=== PATIENT | male | born 1955 | race Caucasian/White ===

== ENCOUNTER 2017-02-08 07:28 | Emergency (ER) | payer OTHER ==
[~2017-02-08] VITALS: Ht 182.9 cm; Wt 99.8 kg
--- NOTE | ~2017-02-08 | CR72 ---
[facility] A Service of [facility] RADIOLOGY TEXT RESULTS PATIENT: MAURO ULRICH LOCATION: [facility] : 51 UNIT #: [id number] AGE: [address]: Loida Rodriguez APRN SEX: M ORDER DR: [id number] [facility] [address] [place], [place] [address] [id number] MR#: [id number] Acc #: [id number] NAME: MUARO ULRICH : 1955 SEX: M STUDY DATE/TIME: 02/08/2017 8:09 UNIT: [facility] ROOM: STUDY DESCRIPTION: CR Chest Single View Portable Attending Physician: Loida Rodriguez A.P.R.N. Ordering Physician: Ed Steve Trinh M.D. Primary Care Physician: Lalita Obregon Aprn MEDICAL IMAGING REPORT This report is preliminary unless electronic signature is present EXAM Chest x-ray single view portable. HISTORY Dyspnea starting today. COMMENT Single frontal portable view of the chest timed 8:09 02/08/2017 reviewed. No comparison. The cardiac silhouette size is normal. There is patchy bilateral lower lung airspace disease, right greater than left. There is mild vascular congestion suspected. No pleural effusion and no pneumothorax seen. IMPRESSION 1. Patchy bilateral lower lung airspace disease, right greater than left. Mild vascular congestion suspected. Could be a manifestation of mild volume overload with patchy pulmonary edema, but there is no pleural effusion or obvious cardiac silhouette enlargement. Please correlate as well for any clinical concern for aspiration or pneumonia. Follow up recommended. Dictated by... Amada Lynn M.D. THIS IS AN ELECTRONICALLY VERIFIED REPORT Amada Lynn M.D. at 02/09/2017 7:51 AM MIRNA/leny TD: 02/08/2017 16:43 JOB #: [id number] [facility] A Service of [facility] RADIOLOGY TEXT RESULTS PATIENT: MAURO ULRICH LOCATION: [facility] : 51 UNIT #: [id number] AGE: [address]: Loida Rodriguez APRN SEX: M ORDER DR: MEDICAL IMAGING REPORT Page 1 of 1 COPY
--- NOTE | ~2017-02-08 | EKG ---
PATIENT: MAURO ULRICH UNIT #: [id number] Ventricular Rate: 69 BPM Atrial Rate: 69 BPM P-R Interval: 144 ms QRS Duration: 114 ms Q-T Interval: 416 ms QTC Calculation(Bezet): 445 ms P [place]: 59 degrees Calculated R [place]: 87 degrees Calculated T [place]: 31 degrees Diagnosis Line: Normal sinus rhythm Diagnosis Line: RSR' or QR pattern in V1 suggests right Diagnosis Line: ventricular conduction delay Diagnosis Line: Borderline ECG Diagnosis Line: Diagnosis Line: Confirmed by DAVON ANDERSON MD ([id number]) on Diagnosis Line: 02/09/2017 8:20:16 PM INTERPRETING MD: ANTWAN
[2017-02-08 08:24] LABS: BASOPHIL% 0.6 % (0-2.5); EOSINOPHIL# 0.1 X10e3 (0-0.7); EOSINOPHIL% 2.5 % (0.0-7.0); HEMATOCRIT 44.4 % (38.0-50.0); HEMOGLOBIN 14.6 gm/dL (13.0-16.0); LYMPHOCYTE# 1.2 X10e3 (1.0-3.5); LYMPHOCYTE% 19.5 % (17.0-45.0); MEAN CELL VOLUME 87.4 FL (83-96); MEAN CORPUSCULAR HEMOGLOBIN 28.7 PG (28-34); MEAN CORPUSCULAR HGB CONC 32.8 g/dL (30-36); MEAN PLATELET VOLUME 8.1 FL (6.5-11.5); MONOCYTE# 0.6 X10e3 (0-1.0); MONOCYTE% 9.1 % (3.0-12.0); NEUTROPHIL# 4.2 X10e3 (1.5-7.1); NEUTROPHIL% 68.3 % (40-75); PLATELET COUNT 210 X10e3 (140-420); RED BLOOD COUNT 5.08 X10e (3.90-5.60); RED CELL DISTRIBUTION WIDTH 12.6 % (11.0-15.5); WHITE BLOOD COUNT 6.1 X10e3 (4.0-10.5)
[2017-02-08 08:26] LABS: DIFF IND NO
[2017-02-08 08:31] LABS: POC - CKMB <1.0 ng/mL (0.0-7.9); POC - TROPONIN <0.05 ng/mL (<=0.05)
[2017-02-08 08:51] LABS: ALBUMIN SERUM 4.2 g/dL (3.5-5.0); BILIRUBIN, DIRECT 0.1 mg/dL (0.0-0.2); BILIRUBIN,INDIRECT 0.3 mg/dL (0.0-0.9); BILIRUBIN,TOTAL 0.4 mg/dL (0.2-2.0); BUN/CREATININE RATIO 23.33; CALCIUM SERUM 8.8 mg/dL (8.4-10.2); CREATININE SERUM 0.9 mg/dL (0.6-1.4); GLOM FILT RATE Estimated 90.6 mL/min (>60); POTASSIUM 3.4 mmol/L (3.5-5.1); PROTEIN TOTAL SERUM 6.9 g/dL (6.0-8.3)
[2017-02-08 10:27] LABS: POC - CKMB <1.0 ng/mL (0.0-7.9); POC - TROPONIN <0.05 ng/mL (<=0.05)
== END 2017-02-11 10:08 | disposition home or self-care (01) ==
LOC: CED 07:28
PROVIDERS: Nurse Practitioner
DX: J18.9 Pneumonia, unspecified organism (principal)
CPT/HCPCS: 36415; 71010; 80048; 80076; 82553; 83880; 84484; 85025; 85379; 93005; 96361; 96374; 99285